=== PATIENT | female | born 1970 ===

== ENCOUNTER 2017-10-22 06:54 | Emergency (ER) | payer MEDICAID ==
[2017-10-22 06:54] VITALS: BMI 42.0
[2017-10-22 07:28] VITALS: RESP 16; O2SAT 100
[2017-10-22] MEDS ORDERED: Sodium Chloride 0.9% 1,000 ML IV STA (07:36)
[2017-10-22 08:00] LABS: BASO % 0.5 % (0.0-2.0); EOS # 0.1 K/uL (0.0-0.7); EOS % 1.9 % (0.0-4.0); HEMATOCRIT 38.3 % (34.0-47.0); LYMPH # 1.5 K/uL (1.0-4.3); LYMPH % 19.5 % (20.0-40.0); MEAN CELL VOLUME 85.8 fl (81.0-99.0); MEAN CORPUSCULAR HEMOGLOBIN 27.9 pg (27.0-31.0); MEAN CORPUSCULAR HGB CONC 32.5 g/dL (33.0-37.0); MEAN PLATELET VOLUME 8.6 fl (7.2-11.7); MONO # 0.9 K/uL (0.0-0.8); MONO % 11.9 % (0.0-10.0); NEUT # 5.1 K/uL (1.8-7.0); NEUT % 66.2 % (50.0-75.0); RED CELL DISTRIBUTION WIDTH 14.2 % (11.5-14.5); WHITE BLOOD COUNT 7.7 K/uL (4.8-10.8)
--- NOTE | 2017-10-22 08:07 | ED PDOC ---
HPI: SOB/CHF/COPD Time Seen by Provider: 10/22/17 07:25 Chief Complaint (Nursing): Shortness Of Breath Chief Complaint (Provider): Shortness of breath, chest tightness, difficulty swallowing History Per: Patient History/Exam Limitations: no limitations Onset/Duration Of Symptoms: Days (x10-11) Current Symptoms Are (Timing): Still Present Additional Complaint(s): Chrissie Stokes is a 47 year old female with a past medical history of Endometriosis presenting to the ED for an evaluation of shortness of breath, chest tightness, and difficulty swallowing occurring for 1 weeks prior to arrival. The patient states associated dry cough, some nasal congestion, body aches. She reports seeing her PMD initially and was prescribed medication (name of medication - unknown) for a UTI diagnosis, which is when her current symptoms began. The patient did not feel well and went to [facility] for an evaluation where she had a CT of her Abd/Pelvis completed. The patient still does not feel well prompting her ED visit today. She denies any differences in drinking, eating, sore throat, vomiting, diarrhea, phlegm, abdominal pain, dizziness, tingling, weakness, or headache. PMD: MD Saige Past Medical History Reviewed: Historical Data, Nursing Documentation, Vital Signs Vital Signs: Last Vital Signs Temp 98.3 F 10/22/17 07:21 Pulse 95 H 10/22/17 07:21 Resp 16 10/22/17 07:21 BP 141/87 10/22/17 07:21 Pulse Ox 100 10/22/17 09:51 - Medical History PMH: Gastritis Other PMH: Endometriosis - Surgical History Surgical History: (x2) - Family History Family History: States: No Known Family Hx - Living Arrangements Living Arrangements: With Family - Social History Current smoker - smoking cessation education provided: No Alcohol: None Drugs: Denies - Immunization History Hx Tetanus Toxoid Vaccination: Yes Hx Influenza Vaccination: Yes Hx Pneumococcal Vaccination: No - Home Medications Home Medications: Ambulatory Orders Medication Instructions Recorded ALPRAZolam HALF TABLET [Xanax HALF 0.125 mg PO TID PRN #10 tab 10/03/17 TABLET] Albuterol HFA [Ventolin HFA 90 0.09 mg IH Q4 PRN #1 puff 10/03/17 mcg/actuation (8 g)] Benzonatate [Tessalon Perles] 100 mg PO BID PRN 5 Days sgl 10/22/17 Ibuprofen [Motrin] 600 mg PO TID 7 Days tab 10/22/17 Nitrofurantoin Macrocrystals 100 mg PO BID #10 cap 10/22/17 [Macrobid] - Allergies Allergies/Adverse Reactions: Allergies Allergy/AdvReac Type Severity Reaction Status Date / Time ciprofloxacin [From Cipro] AdvReac Mild Verified 10/03/17 08:34 Review of Systems ROS Statement: Except As Marked, All Systems Reviewed And Found Negative Constitutional: Negative for: Other (no difference in appetite or thirst) ENT: Positive for: Nose Congestion (minor), Other (difficulty swallowing). Negative for: Throat Pain Cardiovascular: Positive for: Other (chest tightness) Respiratory: Positive for: Cough (dry), Shortness of Breath. Negative for: Sputum Gastrointestinal: Positive for: Nausea. Negative for: Vomiting, Abdominal Pain , Diarrhea Neurological: Negative for: Weakness, Headache, Dizziness, Other (no tingling) Physical Exam - Reviewed Nursing Documentation Reviewed: Yes Vital Signs Reviewed: Yes - Physical Exam Appears: Positive for: Non-toxic, No Acute Distress Head Exam: Positive for: ATRAUMATIC, NORMOCEPHALIC Skin: Positive for: Normal Color, Warm, Dry Eye Exam: Positive for: Normal appearance, EOMI ENT: Positive for: Nasal Congestion Neck: Positive for: Normal, Painless ROM, Supple Cardiovascular/Chest: Positive for: Regular Rate, Rhythm, Chest Non Tender. Negative for: Murmur Respiratory: Positive for: Normal Breath Sounds. Negative for: Respiratory Distress Gastrointestinal/Abdominal: Positive for: Normal Exam, Soft. Negative for: Tenderness Back: Positive for: Normal Inspection. Negative for: L CVA Tenderness, R CVA Tenderness Extremity: Positive for: Normal ROM. Negative for: Pedal Edema, Deformity Neurologic/Psych: Positive for: Alert, junior analyst II-XII, Oriented (x3). Negative for : Motor/Sensory Deficits, Mood/Affect - Laboratory Results Result Diagrams: 10/22/17 07:56 10/22/17 07:56 Interpretation Of Abn Labs: 3.5 k; ast and alt elevated mild same as old; urine wbc - ECG ECG: Positive for: Interpreted By Me, Viewed By Me ECG Rhythm: Positive for: Normal QRS, Normal ST Segment, Sinus Rhythm O2 Sat by Pulse Oximetry: 100 (RA) Pulse Ox Interpretation: Normal - Radiology X-Ray: Read By Radiologist X-Ray Interpretation: No Acute Disease - Progress ED Course And Treament: 952: Stable. AAOx3. Pain free. Multiple visits for same and similar issues. URI and uti. Fu with pcp. Tolerated PO. Medical Decision Making Medical Decision Making: Time: 07:25 Impression: Shortness of breath, chest tightness, difficulty swallowing Plan: * CMP * Troponin I * ED EKG * CBC (with differential) * NS 1,000 ml IV 1,000 mls/hr * Urinalysis * [RAD] Chest Two Views (PA/LAT) * Toradol 15 mg IVP Scribe Attestation: Documented by Juanis Alonzo, acting as a scribe for Jason Rivera MD. Provider Scribe Attestation: All medical record entries made by the Scribe were at my direction and personally dictated by me. I have reviewed the chart and agree that the record accurately reflects my personal performance of the history, physical exam, medical decision making, and the department course for this patient. I have also personally directed, reviewed, and agree with the discharge instructions and disposition. Disposition - Clinical Impression Clinical Impression: Urinary tract infection, URI (upper respiratory infection), Hypokalemia - Patient ED Disposition Is Patient to be Admitted: No Counseled Patient/Family Regarding: Studies Performed, Diagnosis, Need For Followup, Rx Given - Disposition Referrals: [facility] [Outside] - 10/25/17 Disposition: Routine/Home Disposition Time: 09:53 Condition: STABLE Additional Instructions: Return if not better in 3 days. Prescriptions: Benzonatate [Tessalon Perles] 100 mg PO BID PRN 5 Days sgl PRN Reason: Cough Ibuprofen [Motrin] 600 mg PO TID 7 Days tab Nitrofurantoin Macrocrystals [Macrobid] 100 mg PO BID #10 cap Instructions: Urinary Tract Infection in Women (ED), Upper Respiratory Infection (ED), Hypokalemia (ED) Forms: [employer] (Pashto)
[2017-10-22 08:19] LABS: ALB/GLOB RATIO 1.3 (1.0-2.1); ALKALINE PHOSPHATASE 100 U/L (38-126); ALT/SGPT 340 U/L (9-52); AST/SGOT 165 U/L (14-36); BLOOD UREA NITROGEN 8 mg/dl (7-17); CALCIUM 9.8 mg/dL (8.4-10.2); CARBON DIOXIDE 26 mmol/L (22-30); CHLORIDE 105 mmol/L (98-107); GFR AFRICAN-AMERICAN > 60; GLUCOSE,RANDOM 110 mg/dL (65-105); POTASSIUM 3.5 MMOL/L (3.6-5.0); SODIUM 144 mmol/l (132-148); TOTAL PROTEIN 7.7 G/DL (6.3-8.2)
--- NOTE | 2017-10-22 08:33 | RAD ---
HISTORY: dyspnea COMPARISON: No prior. TECHNIQUE: Chest PA and lateral FINDINGS: LUNGS: No active pulmonary disease. PLEURA: No significant pleural effusion identified. No pneumothorax apparent. CARDIOVASCULAR: Normal. OSSEOUS STRUCTURES: No significant abnormalities. VISUALIZED UPPER ABDOMEN: Normal. OTHER FINDINGS: None. IMPRESSION: No acute cardiopulmonary disease appreciated.
[2017-10-22 08:50] LABS: RBC URINE 3 /hpf (0-3); URINE BACTERIA RARE (<OCC); URINE BILIRUBIN NEGATIVE (NEGATIVE); URINE BLOOD NEGATIVE (NEGATIVE); URINE COLOR YELLOW (YELLOW); URINE GLUCOSE (UA) NEG (Normal); URINE KETONE 20 mg/dL (NEGATIVE); URINE LEUKOCYTE ESTERASE MOD Leu/uL (Negative); URINE PROTEIN 30 mg/dL (NEGATIVE); WBC URINE 19 /hpf (0-5)
[2017-10-22] MEDS ORDERED: Potassium Chloride 20 mEq ER Tab PO STA (09:51)
[2017-10-22] MEDS ORDERED: Potassium Chloride 20 mEq ER Tab PO ONE (10:14)
[2017-10-22 10:24] VITALS: BP 139/78; PULSE 90; TEMP 98
--- NOTE | 2017-10-22 18:22 | CARD ---
APPROVED REPORT EKG Measurement Heart [id number] <Conclusion> Normal sinus rhythm Nonspecific ST abnormality Abnormal ECG
== END 2017-10-22 10:49 | disposition home or self-care (01) ==
LOC: H.ER 06:54
DX: J06.9 Acute upper respiratory infection, unspecified (principal); N39.0 Urinary tract infection, site not specified; E87.6 Hypokalemia; N80.9 Endometriosis, unspecified; R13.10 Dysphagia, unspecified
CPT/HCPCS: 71020; 80053; 81003; 81025; 84484; 85025; 93005; 96374; 96375; 99283; J1885; J7040

== ENCOUNTER 2017-10-30 13:25 | Emergency (ER) | payer MEDICAID ==
[2017-10-30 13:25] VITALS: BMI 42.0
[2017-10-30 13:37] VITALS: RESP 16; TEMP 99
--- NOTE | 2017-10-30 14:28 | ED PDOC ---
HPI: Female Pain Time Seen by Provider: 10/30/17 13:42 Chief Complaint (Nursing): Female Genitourinary Chief Complaint (Provider): Suprapubic pain History Per: Patient History/Exam Limitations: no limitations Onset/Duration Of Symptoms: Days Current Symptoms Are (Timing): Still Present Severity: Moderate Pain Scale Rating Of: 5 Additional Complaint(s): Pt reports a few days of suprabupic pressure. PT has history of endometriosis and recently was seen by [facility] who ordered CT abd/pelvis and pelvic US. Pt states the pain feels slightly different. Pt has Rx for colposcopy and endometrial biopsy and asks if it can be done in the ER. Past Medical History Reviewed: Historical Data, Nursing Documentation, Vital Signs Vital Signs: Last Vital Signs Temp 99.0 F 10/30/17 13:33 Pulse 120 H 10/30/17 13:33 Resp 16 10/30/17 13:33 BP 142/87 10/30/17 13:33 Pulse Ox 99 10/30/17 13:33 - Medical History PMH: Gastritis Other PMH: Endormetriosis - Surgical History Surgical History: (x2) - Family History Family History: States: No Known Family Hx - Living Arrangements Living Arrangements: With Family - Social History Current smoker - smoking cessation education provided: No - Immunization History Hx Tetanus Toxoid Vaccination: Yes Hx Influenza Vaccination: Yes Hx Pneumococcal Vaccination: No - Home Medications Home Medications: Ambulatory Orders Medication Instructions Recorded ALPRAZolam HALF TABLET [Xanax HALF 0.125 mg PO TID PRN #10 tab 10/03/17 TABLET] Albuterol HFA [Ventolin HFA 90 0.09 mg IH Q4 PRN #1 puff 10/03/17 mcg/actuation (8 g)] Benzonatate [Tessalon Perles] 100 mg PO BID PRN 5 Days sgl 10/22/17 Ibuprofen [Motrin] 600 mg PO TID 7 Days tab 10/22/17 Nitrofurantoin Macrocrystals 100 mg PO BID #10 cap 10/22/17 [Macrobid] Nitrofurantoin Macrocrystals 100 mg PO BID #10 cap 10/30/17 [Macrobid] - Allergies Allergies/Adverse Reactions: Allergies Allergy/AdvReac Type Severity Reaction Status Date / Time ciprofloxacin [From Cipro] AdvReac Mild RASH Verified 10/30/17 13:33 Review of Systems ROS Statement: Except As Marked, All Systems Reviewed And Found Negative Constitutional: Positive for: Fever, Chills Gastrointestinal: Positive for: Abdominal Pain (Suprapubic ). Negative for: Nausea, Vomiting Physical Exam - Reviewed Nursing Documentation Reviewed: Yes Vital Signs Reviewed: Yes - Physical Exam Appears: Positive for: Well, Non-toxic, No Acute Distress Head Exam: Positive for: ATRAUMATIC, NORMAL INSPECTION, NORMOCEPHALIC Skin: Positive for: Normal Color, Warm, DRY Eye Exam: Positive for: Normal appearance ENT: Positive for: Normal ENT Inspection Neck: Positive for: Normal, Painless ROM Cardiovascular/Chest: Positive for: Regular Rate, Rhythm Respiratory: Positive for: Normal Breath Sounds. Negative for: Accessory Muscle Use Gastrointestinal/Abdominal: Positive for: Normal Exam, Bowel Sounds, Soft. Negative for: Tenderness Back: Positive for: Normal Inspection Extremity: Positive for: Normal ROM Neurologic/Psych: Positive for: Alert, Oriented - ECG O2 Sat by Pulse Oximetry: 99 Disposition - Clinical Impression Clinical Impression: Urinary tract infection - Patient ED Disposition Is Patient to be Admitted: No - Disposition Disposition: Routine/Home Disposition Time: 14:52 Condition: GOOD Prescriptions: Nitrofurantoin Macrocrystals [Macrobid] 100 mg PO BID #10 cap Instructions: Urinary Tract Infection in Women (ED) Forms: [employer] (German)
[2017-10-30 14:42] VITALS: BP 135/80; PULSE 92
[2017-10-30 14:54] VITALS: O2SAT 99
== END 2017-10-30 15:36 | disposition home or self-care (01) ==
LOC: H.ER 13:25
DX: N39.0 Urinary tract infection, site not specified (principal)